=== PATIENT | female | born 1960 | race Caucasian/White ===

== ENCOUNTER 2018-07-15 15:32 | Outpatient (REF) | payer BC, SELFPAY ==
[2018-07-15 19:18] LABS: HCT 40.6 % (36.0-46.0); HGB 13.6 g/dL (12.0-15.5); Mean Corp. HGB Concentration 33.5 g/dL (32.0-36.0); Mean Corpuscular Hemoglobin 30.7 pg (27.0-33.0); Mean Corpuscular Volume 91.6 fL (80-95); Mean Platelet Volume 10.5 fL (8.0-11.0); Platelet Count 245 x1000/uL (130-400); RBC 4.43 m/cumm (4.00-5.20); RBC Distribution Width 12.9 % (11.7-14.6); White Blood Cell Count 4.68 k/cumm (4.4-10.8)
[2018-07-15 19:25] LABS: Anion Gap 9.6 mmol/L (3-11); BUN 21 mg/dL (7-18); C-Reactive Protein 0.23 mg/dL (0.0-0.3); CO2 27.4 mmol/L (21.0-32.0); CREATININE 0.84 mg/dL (0.55-1.02); Calcium 8.9 mg/dL (8.5-10.1); Chloride 103 mmol/L (98-107); Glucose 83 mg/dL (70-100); Potassium 3.6 mmol/L (3.5-5.1); Sodium 140 mmol/L (136-145)
[2018-07-15 19:52] LABS: ESR 18 MM/HR (0-30)
[2018-07-17 09:49] LABS: Cyclic Citrullinated Peptide <2.5 U/mL (<5.0)
[2018-07-17 10:39] LABS: Rheumatoid Factor <8 IU/mL (<12.5)
[2018-07-17 14:46] LABS: ANA Interpretation Negative (NEGAT)
== END 2018-07-15 15:52 ==
LOC: NCHCN 15:32
PROVIDERS: PCP Internal Medicine; Visit Provider Internal Medicine
DX: M19.90 Unspecified osteoarthritis, unspecified site (principal); M79.7 Fibromyalgia; R42 Dizziness and giddiness
CPT/HCPCS: 80048; 85027; 85652; 86200; 86038; 86140; 86431

== ENCOUNTER 2018-12-20 16:24 | Outpatient (REF) | payer BC, SELFPAY ==
[2018-12-20 20:27] LABS: ALT 27 U/L (14-59); AST 17 U/L (15-37); Albumin 3.6 g/dL (3.4-5.0); Alkaline Phosphatase 78 U/L (46-116); Bilirubin, Direct 0.09 mg/dL (0.00-0.20); Bilirubin, Total 0.2 mg/dL (0.2-1.0); Lipase 189 U/L (73-393); Total Protein 6.7 g/dL (6.4-8.2)
== END 2018-12-20 16:44 ==
LOC: NCHCN 16:24
PROVIDERS: PCP Internal Medicine; Visit Provider Internal Medicine
DX: R10.9 Unspecified abdominal pain (principal)
CPT/HCPCS: 80076; 83690

== ENCOUNTER 2020-09-20 16:31 | Outpatient (REF) | payer MEDICAID, SELFPAY ==
[2020-09-20 20:05] LABS: HCT 39.5 % (36.0-46.0); HGB 12.9 g/dL (11.2-15.7); MCH 29.8 pg (27.0-33.0); MCHC 32.7 % (32.0-36.0); MCV 91.2 fL (80-95); MPV 10.4 fL (8.0-11.0); Platelet Count 253 10^3/uL (130-400); RBC 4.33 10^6/uL (3.93-5.22); RDW 12.9 % (11.7-14.6); RDW-SD 43.3 fL; WBC 6.15 10^3/uL (4.4-10.8)
[2020-09-20 20:21] LABS: BUN 23 mg/dL (7-18); CREATININE 0.9 mg/dL (0.55-1.02); Calcium 8.9 mg/dL (8.5-10.1); Chloride 106 mmol/L (98-107); Glucose 92 mg/dL (74-106); Potassium 3.6 mmol/L (3.5-5.1); Sodium 143 mmol/L (136-145)
== END 2020-09-20 16:32 | disposition home or self-care (01) ==
LOC: NCHCN 16:31
PROVIDERS: PCP Internal Medicine; Visit Provider Internal Medicine
DX: I10 Essential (primary) hypertension (principal); R10.32 Left lower quadrant pain; J44.9 Chronic obstructive pulmonary disease, unspecified
CPT/HCPCS: 80048; 85027; 84443

== ENCOUNTER 2021-04-04 14:47 | Outpatient (REF) | payer MEDICAID, SELFPAY ==
[2021-04-04 20:16] LABS: Calculated LDL 203 mg/dL (<100); Cholesterol 286 mg/dL (<200); HDL Cholesterol 45 mg/dL (40-60); Triglyceride 190 mg/dL (<150)
== END 2021-04-04 14:48 | disposition home or self-care (01) ==
LOC: NCHCN 14:47
PROVIDERS: PCP Internal Medicine; Visit Provider Nurse Practitioner Family
DX: I25.10 Atherosclerotic heart disease of native coronary artery without angina pectoris (principal)
CPT/HCPCS: 80061

== ENCOUNTER 2021-04-14 16:09 | Outpatient (REF) | payer MEDICAID, SELFPAY ==
[2021-04-14 20:16] LABS: ALT 30 U/L (14-59); AST 19 U/L (15-37); Albumin 3.8 g/dL (3.4-5.0); Alkaline Phosphatase 87 U/L (46-116); Bilirubin, Direct 0.1 mg/dL (0.0-0.2); Bilirubin, Total 0.4 mg/dL (0.2-1.0); Total Protein 7.2 g/dL (6.4-8.2)
== END 2021-04-14 16:10 | disposition home or self-care (01) ==
LOC: NCHCN 16:09
PROVIDERS: PCP Internal Medicine; Visit Provider Nurse Practitioner Family
DX: E78.5 Hyperlipidemia, unspecified (principal)
CPT/HCPCS: 80076

== ENCOUNTER 2021-05-19 18:48 | Outpatient (REF) | payer MEDICAID, SELFPAY ==
[2021-05-19 21:44] LABS: ALT 26 U/L (14-59); Calculated LDL 71 mg/dL (<100); Cholesterol 148 mg/dL (<200); Glucose 103 mg/dL (74-106); HDL Cholesterol 38 mg/dL (40-60); Triglyceride 198 mg/dL (<150)
[2021-05-19 21:54] LABS: Creatine Kinase 134 U/L (26-192)
== END 2021-05-19 18:49 | disposition home or self-care (01) ==
LOC: NCHCN 18:48
PROVIDERS: PCP Internal Medicine; Visit Provider Internal Medicine
DX: E78.5 Hyperlipidemia, unspecified (principal)
CPT/HCPCS: 80061; 82550; 82947; 84460

== ENCOUNTER 2021-06-17 08:15 | Outpatient (CLI) | payer MEDICAID, SELFPAY ==
--- NOTE | 2021-06-17 08:15 | RT.EKG_ITS ---
APPROVED REPORT Exam: Resting ECG Reason for Exam: CAD Patient Location: O HR:60 bpm ECG Measurements Heart Rate 60 AXIS TX 173 P 61 QRSd 156 QRS 18 QT 490 T 58 QTc 490 Conclusion Sinus rhythm...normal P axis, V-rate 50- 99 Left bundle branch block...QRSd>120, broad/notched R
== END 2021-06-17 08:16 | disposition home or self-care (01) ==
LOC: DI.CARD 08:16
PROVIDERS: PCP Internal Medicine; Visit Provider Internal Medicine Cardiovascular Disease
DX: I25.10 Atherosclerotic heart disease of native coronary artery without angina pectoris (principal)
CPT/HCPCS: 93010

== ENCOUNTER → 2021-06-30 02:00 | Outpatient (CLI) | payer MEDICAID, SELFPAY ==
--- NOTE | 2021-06-30 08:00 | DI.NM_ITS ---
APPROVED REPORT Exam: Pharmacologic Patient Location: Out-Patient Room/Bed: Stress Nurse: Kaylee Garrett RN Ordering Provider:JANEL BENSON, Contact Number: [phone] BMI: 31.88 Baseline Rhythm: Sinus Rhythm, LBBB Indications: Chest pain Medical History Medical History: Hypertension, hyperlipidemia, COPD, obesity, hx tobacco use, LBBB, palpitations, CAD , osteoarthritis, fibromyalgia, gerd, graves disease Cardiac Medications: Atenolol, rosuvastatin, losartan-HCTZ, fluticasone-salmetrol inhaler Allergies: Fentanyl, gabapentin, penicillins, marlon inhibitors, dicloflenal Cardiac Risk Factors: Hypertension, hyperlipidemia, COPD, obesity, smoker (former), CVD, family hx Previous Cardiac Procedures: None Pretest Chest Pain Characteristics: Baseline 02/14 chest pain Exercise History: Sedentary Physical Disabilities: None Lung Sounds: Clear to auscultation Heart Sounds: Regular Stress Test Details Test: Pharmacologic stress was paired with low level exercise. Reason for pharmacologic stress test: LBBB. Nuclear Acquisition: Rest Tc-99m/Stress Tc-99m 1 day Rest Isotope: Tc-99m Sestamibi. Dose: 9.9 Date: 06/30/2021 Injection Time: 1105 Stress Isotope: Tc-99m Sestamibi. Dose: 29.8 Date: 06/30/2021 Injection Time: 1255 HR Resting HR Supine: 60 bpm Max Heart Rate (APMHR): 161.101695 bpm Resting HR Standin bpm Target HR (85% APMHR): 136.914902 bpm Max HR Achieved: 122 bpm % of APMHR: 75.78 Recovery HR: 80 bpm HR response to stress: Blunted HR response to stress Comment: Atenolol held for 48 hrs BP Resting BP Supine: 122/86 mmHg Resting BP Standin/84 mmHg Max BP: 134/74 mmHg Recovery BP: 124/70 mmHg ECG Resting ECG: Sinus Rhythm, LBBB Ectopy: None Stress ECG: Sinus Tachycardia, LBBB ST Change: Nondiagnostic LBBB Arrhythmia: None Recovery ECG: Sinus Rhythm, LBBB Recovery ST Change: Nondiagnostic LBBB Recovery Arrhythmia: None Clinical Stress Symptoms: General Fatigue, Dyspnea, Chest pain Exercise duration: 4 min00 sec Exercise capacity: 2.23 METs Rate Pressure Product: 45642 Stress ECG Conclusion 1. Resting electrocardiogram showed a left bundle branch block 2. The patient underwent testing with low-level exercise along with pharmacologic stress with regaden oson 3. Peak heart rate achieved was 74% of predicted for age 4. The electrocardiographic portion of the test was nondiagnostic due to left bundle branch block and inadequate heart rate 5. See MPI report Stress Test Summary STAGE HR BP Symptoms NOTES Supine 60 122/86 Baseline chest pain 1/10 SPO2 97% 1 min post Lexiscan injection 120 128/76 Mild SOB, chest pain 3/10 SPO2 97% 3 min post Lexiscan injection 105 134/74 Symptoms improving SPO2 96% 6 min post Lexiscan injection 80 124/70 SOB and chest pain resolved SPO2 97% MPI Conclusion Normal myocardial perfusion without evidence of ischemia or prior infarction EF 73%, normal wall motion Radiologist Interpretation Radiologist Interpretation by: Reji Escobar MD Interpretation Date/Time: 06/30/2021 16:57:56
[2021-06-30] MEDS: Regadenoson 0.4 MG/5 ML SYR IVP (13:25)
== END ==
PROVIDERS: PCP Internal Medicine; Visit Provider Internal Medicine Cardiovascular Disease
DX: R07.89 Other chest pain (principal)
CPT/HCPCS: 78452; 93017; J2785

== ENCOUNTER → 2021-07-18 02:04 | Outpatient (CLI) | payer MEDICAID, SELFPAY ==
--- NOTE | 2021-07-18 13:53 | DI.US_ITS ---
APPROVED REPORT EXAM: Comprehensive 2D, Doppler, and color-flow Echocardiogram Patient Location: Out-Patient Supervisor [employer] Vehicle: Yue Diaz RDCS (AE) Indications: Chest pain Other Information Study Quality: Adequate Conclusion Normal left ventricular wall thickness and chamber size. Estimated ejection fraction is 60%. Wall m otion is normal Normal right ventricular size and systolic function Both atria are normal in size There is no structural or hemodynamically significant valvular disease Estimated right ventricular systolic pressure is 28 mmHg Wall motion Left Ventricle The left ventricle is normal size. The left ventricular systolic function is normal. The left ventric ular ejection fraction is within the normal range. There is normal left ventricular wall thickness. T here is normal LV segmental wall motion. There is no ventricular septal defect visualized. LVEF is 60 %. Right Ventricle The right ventricle is normal size. The right ventricular systolic function is normal. The RVSP is 27 .8mmHg. Atria The left atrium size is normal. The right atrium size is normal. The interatrial septum is intact wit h no evidence for an atrial septal defect. Aortic Valve The aortic valve is normal in structure. Aortic valve is trileaflet. There is no aortic valvular sten osis. No aortic regurgitation is present. Mitral Valve The mitral valve is normal in structure. No evidence of mitral valve stenosis. Mild mitral regurgitat ion. Tricuspid Valve The tricuspid valve is normal in structure. There is no tricuspid valve stenosis. Mild tricuspid regu rgitation. Pulmonic Valve The pulmonary valve is normal in structure. There is no pulmonic valvular stenosis. Trace pulmonic re gurgitation. Great Vessels The aortic root is normal in size. The ascending aorta is normal in size. Aortic arch is normal in ca liber. IVC is normal in size and collapses >50% with inspiration. Pericardium There is no pericardial effusion. 2D Dimensions IVSD d PLAX 0.99 cm F: 0.6-1.0 LV Vol A2C d MOD 103.1 mL LVPW d PLAX 0.97 cm F: 0.6 - 1.0 LV Vol A4C d MOD 104.0 mL LVID d PLAX 4.99 cm F: 3.8 - 5.2 LA vol/ BSA A2C s A-L 31.3 mL/m2 LVDs 3.25 cm F: 2.2 - 3.5 LA vol/ BSA A4C s A-L 26.8 mL/m2 Ao Root d 2.63 cm F: 2.7 - 3.3 LA Vol/ BSA Biplane s A-L 29.5 mL/m2 RA Area A4C 19.41 cm2 LA Area A4C s MOD 18.21 cm2 RA Vol/ BSA A4C s A-L 32.2 mL/m2 LA Area A2C s MOD 19.34 cm2 Ao Asc Diam d 3.12 cm F: 2.3 - 3.1 LV EF A4C MOD 58.5 % LV EF Teichholz 63.5 % LV EF A2C MOD 60.9 % LVEF (Anne's) 61.06 % F: 54 - 74 LV EF Biplane MOD 61.1 % LV Volume 83.47 mL F: 46 - 106 SV 65.59 mL LV Volume Index 46.37 mL/m2 F: 29 - 61 SV Index 36.35 mL/m2 LV Vol Biplane MOD 107.4 mL FS 34.60 % M-Mode TAPSE 2.43 cm (M/F) >1.7 LV Diastology MV E' medial 0.080 (>0.07 m/s) E/A Ratio 1.0 LV E/e MED 10.05 (<14) MV E Vmax 0.80 (0.4-1.3 m/s) MV E' lateral 0.093 (>0.1 m/s) MV A Vmax 0.80 (0.4-1.3 m/s) LV E/e LAT 8.60 (<14) MV E/A Ratio 0.98 MV E/E' medial 10.06 MV E/E' lateral 8.65 Aortic Valve LVOT Area 3.01 cm2 AoV Area Vmax 2.72 cm2 LVOT Vmax 1.40 m/s AoV Area/ BSA (Vmax) 1.51 cm2/m2 LVOT Mean Antonio. 1.01 m/s ASPEN Mean Antonio. 2.64 cm2 LVOT Peak Grad 7.9 mmHg ASPEN Mean Antonio. Index 1.46 cm2/m2 LVOT Mean Grad 4.5 mmHg LVOT VTI 0.361 m LVOT Diam s 1.95 cm AoV Vmax 1.55 m/s Velocity Ratio 0.90 AoV Mean Antonio. 1.15 m/s AoV Peak Grad 9.6 mmHg LVOT SV 108.67 mL AoV Mean Grad 5.9 mmHg AoV VTI 0.383 m AoV Area VTI 2.84 cm2 AoV Area/ BSA (VTI) 1.57 cm/m2 Mitral Valve MV DT 197 (160-240 msec) MV PHT 57 msec MV Area PHT 3.86 cm2 MV VTI 0.375 m MV Area VTI 2.90 (4.0-6.0 cm2) Pulmonary Valve PV Vmax 0.89 (0.5-1.5 m/s) RVOT Peak Gr. 1.28 mmHg PV Peak Grad 3.2 mmHg RVOT Mean Gr. 0.85 mmHg PV Mean Grad 1.8 mmHg RVOT VTI 0.143 m PV VTI 0.210 m RVOT Vmax 0.57 m/s Tricuspid Valve TR Peak Grad 24.8 mmHg TR Vmax 2.49 m/s RA Pressure 3.00 mmHg RVSP (TR) 27.8 mmHg
== END ==
PROVIDERS: PCP Internal Medicine; Visit Provider Internal Medicine Cardiovascular Disease
DX: R07.9 Chest pain, unspecified (principal)
CPT/HCPCS: 93306

== ENCOUNTER 2022-02-23 02:32 | Outpatient (CLI) | payer MEDICAID, SELFPAY ==
--- NOTE | 2022-02-23 11:00 | DI.NM_ITS ---
APPROVED REPORT Exam: Exercise Treadmill Patient Location: Out-Patient Room/Bed: Stress Nurse: Ghada Armando RN Ordering Provider:DAVIAN SOLANO, Contact Number: [phone] BMI: 29.93 Baseline Rhythm: Sinus Rhythm, Sinus Bradycardia Indications: CAD, marked MEDEROS Medical History Medical History: CAD, COPD, Depression, Former Smoker, Fibromyalgia, GERD, HLD, HTN, LBBB, palpitatio ns Cardiac Medications: Rosuvastatin, losartan, atenolol Allergies: Fentanyl, gabapentin, penicillins, MARY inhibitors, diclofenac Cardiac Risk Factors: Family Hx, COPD, CVD, HTN, HLD, Former Smoker Previous Cardiac Procedures: Stress test (2021) Pretest Chest Pain Characteristics: none Exercise History: Sedentary Physical Disabilities: none Lung Sounds: Clear to auscultation Heart Sounds: Regular Stress Test Details Test: Exercise stress converted to pharmacologic stress due to failure to obtain a diagnostic stress test. Nuclear Acquisition: Stress Tc-99m/Stress Tc-99m 1 day Rest Isotope: Tc-99m Sestamibi. Dose: 10 Date: 02/23/2022 Injection Time: 1125 Stress Isotope: Tc-99m Sestamibi. Dose: 30 Date: 02/23/2022 Injection Time: 1306 HR Resting HR Supine: 53 bpm Max Heart Rate (APMHR): 160.635338 bpm Resting HR Standin bpm Target HR (85% APMHR): 136.117151 bpm Max HR Achieved: 108 bpm % of APMHR: 67.50 Recovery HR: 73 bpm HR response to stress: Normal HR response to stress BP Resting BP Supine: 128/80 mmHg Resting BP Standin/90 mmHg Max BP: 150/92 mmHg Recovery BP: 122/92 mmHg BP response to stress: Normal blood pressure response to stress. ECG Resting ECG: Sinus Bradycardia Ectopy: none Comment: baseline ST depression leads II, III, aVF, V5, and V6 1mm max deviation horizontal Stress ECG: Sinus Rhythm, Sinus Tachycardia ST Change: Horizontal ST depression Lead(s): II, II, aVF, V5, V6 Stage: [address] Deviation: 3 mm Arrhythmia: None Recovery ECG: Sinus Rhythm Recovery ST Change: Horizontal ST depression Lead(s): II, III, aVF, V5, V6 Recovery ST Deviation: 1 mm Recovery Arrhythmia: None Comment: baseline ST depression Clinical Reason for Termination: Fatigue Stress Symptoms: General Fatigue Exercise duration: 4 min01 sec Highest Stage Reached: Stage 1: 1.7 mph at 10% grade. Exercise capacity: 4.6 METs Functional Capacity: Markedly diminished capacity Functional Aerobic Impairment 29552% Angina Score: None Hercules Treadmill Score: -11.0 Rate Pressure Product: 80648 Stress ECG Conclusion 1. The resting electrocardiogram showed a left bundle branch block 2. Patient underwent testing using a combination of low-level exercise and pharmacologic stress with regadenoson 3. Peak heart rate achieved was 68% of predicted for age 4. The electrocardiographic portion of the test was nondiagnostic due to inadequate heart rate and le ft bundle branch block 5. See MPI report Hercules Treadmill Score is -11.0 which is High risk. Stress Test Summary STAGE Time (mins) Speed (mph) Grade (%) HR BP SpO2 SYMPTOMS METS Supine 53 128/80 95 Standing 69 130/90 95 1 3 1.7 10 unable to complete-transition at 1:45 4.5 1 min post Lexiscan injection 104 140/90 95 SOB, chest tightness 3 min post Lexiscan injection 101 150/92 95 SOB, chest tightness, severe anxiety 6 min post Lexiscan injection 81 132/88 95 SOB and chest tightness resolved 9 min post Lexiscan injection 73 122/92 96 anxiety still present Transition to walking lexiscan at 01:45 for fatigue. Walking jarod was performed at 0% grade and 0.7mp h. Patient had a reaction to lexiscan. She first experienced SOB and chest tightness. As those symptoms were resolving, she started experiencing severe anxiety accompained with a shaking feeling. This feel ing was resolved after sitting with staff for awhile and drinking coffee. At 1335, patient reports sh e is feeling back to normal. MPI Conclusion Normal myocardial perfusion, no ischemia or evidence of prior infarction EF 61%, normal wall motion Radiologist Interpretation Radiologist agrees with Paper Twister's Interpretation. Radiologist Interpretation by: Ahmet Nicole MD Interpretation Date/Time: 02/23/2022 16:41:44
[2022-02-23] MEDS: Regadenoson 0.4 MG/5 ML SYR IVP (13:21)
== END 2022-02-23 02:52 ==
LOC: DI 02:32
PROVIDERS: PCP Internal Medicine; Visit Provider Internal Medicine
DX: I25.10 Atherosclerotic heart disease of native coronary artery without angina pectoris (principal)
CPT/HCPCS: 78452; 93017; J2785

== ENCOUNTER 2022-06-05 10:07 | Outpatient (CLI) | payer MEDICAID, SELFPAY ==
--- NOTE | 2022-06-05 09:45 | DI.RAD_ITS ---
Exam(s) XR KNEE RT 3V AP,LAT,SIVAN EXAM: XR KNEE RT 3V AP,LAT,SIVAN CLINICAL HISTORY: R knee pain. TECHNIQUE: 2D digital imaging was performed of the right knee. Three views obtained. Merchant, AP, l ateral and PA tunnel views were obtained. COMPARISON: No exams were available for comparison FINDINGS: BONES: No acute fracture is present. No bony destructive lesion is seen. JOINTS: There is mild narrowing of the medial femoral tibial joint. No joint effusion is seen. SOFT TISSUE: Atherosclerosis is present. IMPRESSION: Mild joint space narrowing of the right knee. DATA REPOSITORY: RADIATION DOSE DELIVERED:
== END 2022-06-05 10:08 | disposition home or self-care (01) ==
LOC: DIORS 10:07
PROVIDERS: PCP Internal Medicine; Visit Provider Physician Assistant
DX: M17.11 Unilateral primary osteoarthritis, right knee
CPT/HCPCS: 73562

== ENCOUNTER 2022-10-12 04:30 | Outpatient (CLI) | payer MEDICAID, SELFPAY ==
[2022-10-12] MEDS: Albuterol HFA 18 GM 200 PUFF INH IH (14:43)
[2022-10-12] MEDS: Inhaler, Assist Device 1 EACH MC (14:43)
[2022-10-12] MEDS: Methacholine 100 MG VIAL IH (14:43)
--- NOTE | 2022-10-17 07:21 | W.PFT ---
Date of service: 10/12/22 Time of Service: 13:07 Pulmonary Function Test Result Indications: Chronic cough Interpretation Spirometry: There is mild baseline airflow limitation. There was a 20% decrease in FEV1 with administration of 0.5mg/mL methacholine. Impression Mild chronic airflow obstruction with a positive methacholine challenge. Clinical Correlation therefore is recommended.
== END 2022-10-12 04:31 | disposition home or self-care (01) ==
PROVIDERS: PCP Internal Medicine; Visit Provider Student in an Organized Health Care Education/Training Program
DX: R05.3 Chronic cough (principal)
CPT/HCPCS: 94060; 94070; J7674

== ENCOUNTER 2022-11-16 01:07 | Outpatient (CLI) | payer MEDICAID, SELFPAY ==
[2022-11-16 15:30] LABS: HGB 13.5 g/dL (11.2-15.7); MCH 29.5 pg (27.0-33.0); MCHC 32.9 % (32.0-36.0); MCV 90 fL (80-95); MPV 9.3 fL (8.0-11.0); Platelet Count 226 10^3/uL (130-400); RBC 4.58 10^6/uL (3.93-5.22); RDW 12.6 % (11.7-14.6); RDW-SD 41.4 fL; WBC 7.08 10^3/uL (4.4-10.8)
[2022-11-16 16:32] LABS: Anion Gap 6.8 mmol/L (3-11); BUN 24 mg/dL (7-18); CO2 30.2 mmol/L (21.0-32.0); CREATININE 1.1 mg/dL (0.55-1.02); Calcium 9.6 mg/dL (8.5-10.1); Chloride 104 mmol/L (98-107); Estimated GFR 57.17 (mL/min/1.73m2); Glucose 87 mg/dL (74-106); Potassium 3.4 mmol/L (3.5-5.1); Sodium 141 mmol/L (136-145)
== END 2022-11-16 01:08 | disposition home or self-care (01) ==
LOC: LBO 01:07
PROVIDERS: PCP Internal Medicine; Visit Provider Student in an Organized Health Care Education/Training Program
DX: M17.11 Unilateral primary osteoarthritis, right knee (principal); Z01.818 Encounter for other preprocedural examination
CPT/HCPCS: 36415; 80048; 85027

== ENCOUNTER 2022-11-16 15:25 | Outpatient (CLI) | payer MEDICAID, SELFPAY ==
--- NOTE | 2022-11-16 14:52 | DI.RAD_ITS ---
Exam(s) XR STANDING ALIGNMENT EXAM: XR STANDING ALIGNMENT CLINICAL HISTORY: R TKR planning. TECHNIQUE: 2D digital imaging was performed. Standing AP views were performed from the pelvis throu gh the ankles. COMPARISON: CR XR KNEE RT 3V AP,LAT,SIVAN from 06/05/2022 FINDINGS: BONES: No acute fracture is present. No bony destructive lesion is seen. Leg length discrepancy: JOINTS: Knees: Moderate narrowing of the medial femoral tibial joint space of the right knee with mil d periarticular spurring. Joint spaces of the left knee are maintained. The ankle joints are unremarkable. The hip joints are unremarkable. SOFT TISSUE: Normal. IMPRESSION: Moderate degenerative changes of the right knee.. No significant leg length discrepancy. DATA REPOSITORY: RADIATION DOSE DELIVERED:
== END 2022-11-16 15:26 | disposition home or self-care (01) ==
LOC: DIORS 15:26
PROVIDERS: PCP Internal Medicine; Visit Provider Physician Assistant
DX: M17.11 Unilateral primary osteoarthritis, right knee (principal); Z01.818 Encounter for other preprocedural examination
CPT/HCPCS: 77073

== ENCOUNTER 2022-11-21 08:21 | Day surgery (SDC) | payer MEDICAID, SELFPAY ==
[2022-11-21] VITALS (13 sets, daily range): BP systolic 97–162; BP diastolic 47–85; PULSE 51–646; RESP 13–18; TEMP 36.3–36.5; O2SAT 78–99; BMI 31.5
--- NOTE | 2022-11-21 09:10 | W.ANESPRE ---
General Info Date of Service Date Performed: 11/21/22 Height: 5 ft 3 in Weight: 80.739 kg Body Mass Index (BMI): 31.5 Surgical Procedure: Operation Date: 11/21/22 11:25 Proposed Procedure Side Surgeon p Knee Total Arthroplasty, Cementless CR Right Richard Chavarria MD Meds Allergies and Home Medications Allergies Allergy/AdvReac Type Severity Reaction Status Date / Time gabapentin Allergy Rash over Verified 11/21/22 09:01 entire body Penicillins AdvReac Severe Anaphylaxsi Verified 11/21/22 09:01 s MARY Inhibitors AdvReac cough Verified 11/21/22 09:01 diclofenac [From Voltaren] AdvReac unknown Verified 11/21/22 09:01 fentanyl [From Duragesic] AdvReac Vomiting, Verified 11/21/22 09:01 and heart racing Home Medication Medication Instructions Recorded atenolol 25 mg tablet 25 mg PO HS 08/07/22 cholecalciferol (vitamin D3) 25 25 mcg PO DAILY 08/07/22 mcg (1,000 unit) tablet fluocinonide 0.05 % topical cream 1 applic topical DAILY PRN 08/07/22 losartan 100 1 tab PO DAILY 08/07/22 mg-hydrochlorothiazide 25 mg tablet rosuvastatin 20 mg tablet 20 mg PO HS 08/07/22 budesonide-formoterol HFA 80 2 puff inhalation BID #10.2 grams 10/05/22 mcg-4.5 mcg/actuation aerosol inhaler (Symbicort) sodium chloride 0.65 % nasal spray 2 spray intranasal BID dry nasal 10/05/22 aerosol (Saline Mist) passages #45 mL triamcinolone acetonide 55 mcg 1 spray intranasal DAILY #16.9 mL 10/05/22 nasal spray aerosol (Nasacort) ibuprofen 200 mg tablet (IBU-200) 400 mg PO TID PRN 11/21/22 Current Visit Medications: Current Medications Generic Name Dose Route Start Last Admin Trade Name Freq PRN Reason Stop Dose Admin Acetaminophen 1,000 mg 11/21/22 06:00 Acetaminophen 500 Mg Tab PO 11/21/22 16:00 PREOP JERRY Celecoxib 400 mg 11/21/22 06:00 Celecoxib 200 Mg Cap PO 11/21/22 16:00 PREOP JERRY Tranexamic Acid 1,000 mg/ 60 mls @ 360 mls/hr 11/21/22 06:00 Sodium Chloride IVPB 11/21/22 16:00 PREOP JERRY Ringer's Solution 1,000 mls @ 80 mls/hr 11/21/22 06:00 IV 12/20/22 23:59 INFUSION JERRY Clindamycin Phosphate/Dextrose 900 mg in 50 mls @ 50 mls/hr 11/21/22 06:00 Cleocin In D5w IVPB 11/21/22 16:00 PREOP JERRY IV Miscellaneous Supplies 1 each 11/21/22 06:00 Iv Access IV 12/20/22 23:59 DIRECTED JERRY Sodium Chloride 0 ml 11/21/22 06:00 Normal Saline Flush 10 Ml Syr IV 12/20/22 23:59 PRN PRN Sodium Chloride 0 ml 11/21/22 06:00 Normal Saline 10 Ml Vial IJ 12/20/22 23:59 DIRECTED PRN Sterile Water 0 ml 11/21/22 06:00 Water,Injection,Sterile 10 Ml Vial IJ 12/20/22 23:59 DIRECTED PRN PFSH Active Problems Active Problems: Problem Status Onset Code Sciatica M54.30 COVID-19 virus infection U07.1 Tendinitis M77.9 Chronic cough R05.3 Osteoarthritis of right knee M17.11 Dyspnea on exertion R06.00 Chest pain R07.9 Shingles (herpes zoster) polyneuropathy B02.23 Medical History Medical History (Updated 11/20/22 @ 12:04 by Davie Leija) Asthma Visual disturbance (01/01/17) Postnasal drip (01/01/17) Disorder of both eustachian tubes (01/01/17) Chronic rhinitis (01/01/17) Chronic disease of both ears (01/01/17) 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 managed Psoriasis Ex-smoker for more than 1 year GERD (gastroesophageal reflux disease) Bilateral carpal tunnel syndrome Menopausal and postmenopausal disorder LBBB (left bundle branch block) Thoracic radiculitis Allergic rhinitis Photophobia Chronic suppurative otitis media HTN (hypertension) Candidal intertrigo Abnormal brain MRI Chronic vertigo Fibromyalgia Herpes zoster Post herpetic neuralgia Mild cognitive impairment IBS (irritable bowel syndrome) Ear fullness COPD (chronic obstructive pulmonary disease) Osteoarthritis Depression Ankylosing spondylitis lumbar region Superior semicircular canal dehiscence LLQ pain Rib pain on left side Neuralgia of right upper extremity Abnormal breast finding CAD (coronary artery disease) HLD (hyperlipidemia) Surgical History Surgical History (Updated 11/21/22 @ 08:44 by Shruthi Hernandez) Hx of tonsillectomy History of nasal septoplasty History of cholecystectomy Tobacco Smoking/Tobacco Use Status: Former Tobacco Use Alcohol Alcohol Intake: never Substance Use Substance use: Daily Substance use type: marijuana Vital Signs and Lab Results Vital Signs Comment Vital Signs Comment:: Temp Pulse Resp BP Pulse Ox 36.5 C 58 L 16 127/68 98 11/21/22 08:30 11/21/22 08:30 11/21/22 08:30 11/21/22 08:30 11/21/22 08:30 Lab Results Blood Type / Crossmatch: No Data to Display Complete Blood Count: White Blood Count 7.08 10^3/uL (4.4-10.8) 11/16/22 15:20 Red Blood Count 4.58 10^6/uL (3.93-5.22) 11/16/22 15:20 Hemoglobin 13.5 g/dL (11.2-15.7) 11/16/22 15:20 Hematocrit 41.0 % (36.0-46.0) 11/16/22 15:20 Platelet Count 226 10^3/uL (130-400) 11/16/22 15:20 Complete Metabolic Panel: Sodium 141 mmol/L (136-145) 11/16/22 15:20 Potassium 3.4 mmol/L (3.5-5.1) L 11/16/22 15:20 Chloride 104 mmol/L (98-107) 11/16/22 15:20 Carbon Dioxide 30.2 mmol/L (21.0-32.0) 11/16/22 15:20 BUN 24 mg/dL (7-18) H 11/16/22 15:20 Creatinine 1.1 mg/dL (0.55-1.02) H 11/16/22 15:20 Est GFR (CKD-EPI 2020) 57.17 (mL/min/1.73m2) 11/16/22 15:20 Calcium 9.6 mg/dL (8.5-10.1) 11/16/22 15:20 Glucose 87 mg/dL (74-106) 11/16/22 15:20 Liver Function Panel: No Data to Display Coagulation Panel: No Data to Display Cardiac Panel: No Data to Display Arterial Blood Gas: No Data to Display Venous Blood Gas: No Data to Display Pancreas Panel: No Data to Display Thyroid Panel: No Data to Display Infectious Disease: No Data to Display Blood Cultures: No Data to Display Toxicology Panel: No Data to Display Imaging and Studies Imaging and Studies Study information below may be from another EMR and interpreted by another provider. Please see original notes in EMR for more complete details. EKG Summary: 06/17/2021: Exam: Resting ECG Reason for Exam: CAD Patient Location: O HR:60 bpm ECG Measurements Heart Rate 60 AXIS LA 173 P 61 QRSd 156 QRS 18 QT 490 T58 QTc 490 Conclusion Sinus rhythm...normal P axis, V-rate 50- 99 Left bundle branch block...QRSd>120, broad/notched R Echocardiogram Summary: 07/18/2021: Conclusion Normal left ventricular wall thickness and chamber size. Estimated ejection fraction is 60%. Wall motion is normal Normal right ventricular size and systolic function Both atria are normal in size There is no structural or hemodynamically significant valvular disease Estimated right ventricular systolic pressure is 28 mmHg Pulmonary Function Summary: 10/17/22: Pulmonary Function Test Result Indications: Chronic cough Interpretation Spirometry: There is mild baseline airflow limitation. There was a 20% decrease in FEV1 with administration of 0.5mg/mL methacholine. Impression Mild chronic airflow obstruction with a positive methacholine challenge. Clinical Correlation therefore is recommended. Anesthesia Assessment and Plan Anesthesia History Personal History: No History of Anesthesia Complications Family History: No Family History of Anesthesia Complications Exercise Tolerance Exercise Tolerance: Metabolic Equivalents>4 Pertinent Negatives Pertinent Negatives: No Symptoms of GERD and No Major Pulmonary Symptoms or Complaints Cardiac & Pulmonary Exam Cardiac Exam: Normal S1/S2 Heart Sounds Pulmonary Exam: Clear Bilateral Breath Sounds Implantable Cardiac Device Does patient have a Pacemaker or an ICD?: No Airway Exam Known Difficult Airway: No Mallampati Class: 3 Mouth Opening: Normal (> 3cm) Thyromental Distance: Greater than 3 cm Neck Range of Motion: Full ROM Neck Circumference: Normal Teeth Condition: Normal Dentition ASA Classification ASA Score: ASA 3 Emergency Case?: No NPO Status NPO Status: NPO Clears >2 hours, Solids >8 hours Anesthesia Plan Resuscitation Status: Full Code Anesthesia Technique: Spinal Anesthesia Airway Planned: Natural Airway Pain Management: Surgeon and patient request nerve block Monitors Used: Standard Monitors Preoperative Comments:: Patient extremely anxious, plan for preoperative sedation for block and SAB. If patient unable to tolerate block or SAB placement, plan to convert to GA/ETT.
[2022-11-21] MEDS: Acetaminophen 500 MG TAB 1000 MG PO (09:22)
[2022-11-21] MEDS: Celecoxib 200 MG CAP 400 MG PO (09:22)
[2022-11-21] MEDS: CLINDAMYCIN 900 MG/50 ML BAG 50 MG IVPB (09:40)
[2022-11-21] MEDS: Lactated Ringers 1,000 ML 80 ML IV (09:43)
--- NOTE | 2022-11-21 10:08 | W.PM.DS.N ---
Date of service: 11/21/22 Time of Service: 10:14 DS: Diagnosis Discharge Diagnosis (1) Osteoarthritis of right knee: Status: Resolved Discharge Plan Disposition Patient Disposition: Home Condition: Good Discharge Details Reason For Visit: Right knee DJD Attending Provider: Richard Chavarria Primary Care Provider: Reji Campbell Home Meds and New Rx's Prescriptions: New acetaminophen 500 mg tablet 1,000 mg PO Q8H PRN Qty: 90 0RF Rx Instructions: Take two tablets up to every 8 hours as needed for pain aspirin 81 mg tablet,delayed release (DR/EC) 81 mg PO BID 30 Days Qty: 60 0RF celecoxib [Celebrex] 200 mg capsule 200 mg PO BID PRNQty: 60 0RF Rx Instructions: Take one tablet twice daily for pain and inflammation docusate sodium [Colace] 100 mg capsule 100 mg PO BID Qty: 30 0RF dexamethasone 4 mg tablet 4 mg PO DAILY Qty: 2 0RF Rx Instructions: Take one tablet once daily for two days pantoprazole 40 mg tablet,delayed release (DR/EC) 40 mg PO DAILY Qty: 14 0RF ondansetron HCl 4 mg tablet 4 mg PO Q6H PRNQty: 12 0RF Rx Instructions: Take one tablet up to every 6 hours as needed for severe postoperative nausea Continued budesonide-formoterol [Symbicort] 80-4.5 mcg/actuation HFA aerosol inhaler 2 puff inhalation BID Qty: 10.2 12RF Saline Mist 0.65 % aerosol,spray 2 spray intranasal BID Qty: 45 4RF triamcinolone acetonide [Nasacort] 55 mcg aerosol,spray 1 spray intranasal DAILY Qty: 16.9 12RF Rx Instructions: administer into each nostril losartan-hydrochlorothiazide 100-25 mg tablet 1 tab PO DAILY rosuvastatin 20 mg tablet 20 mg PO HS atenolol 25 mg tablet 25 mg PO HS fluocinonide 0.05 % cream 1 applic topical DAILY PRN cholecalciferol (vitamin D3) 25 mcg (1,000 unit) tablet 25 mcg PO DAILY Discontinued ibuprofen [IBU-200] 200 mg tablet 400 mg PO TID PRN No Action oxycodone 5 mg tablet 5 mg PO Q6H PRN MDD 20 mg PRN (Reason: pain) Qty: 16 0RF Rx Instructions: Take one tablet up to every 6 hours as needed for severe postoperative pain Discharge Instructions Additional Instructions: Total Knee Discharge Instructions Activity: The most important activity is to walk and to work on gentle motion (both flexion and extension). You should try to take short walks a few times a day. It is important that when resting you work on keeping the knee straight. Avoid putting a pillow behind the knee as this will encourage flexion. Work on range of motion exercises as provided by Physical Therapy. - Start outpatient physical therapy within 2 weeks. - You should wear the ESTRELLA hose on both legs for 2 weeks. You may remove these at night. You may also use any compression sock in place of the ESTRELLA hose. - Utilize [employer] to review exercises, see videos on exercises and obtain basic information pertaining to your surgery and your recovery. Dressing: Remove the Fernando wrap by 2 days after your surgery and put on the ESTRELLA stocking given to you from the hospital. Keep the surgical dressing (underneath the FERNANDO wrap) in place for at least one week. After the first week it may be removed and replaced with light gauze and tape or nothing. The wound and dressing may get wet after 3 days but avoid soaking the dressing or otherwise it will need to be changed. Many people prefer covering the dressing with cling wrap (saran wrap) to minimize it from getting soaked. If it gets wet, just pat dry. If it starts to peel off then it will need to be changed. Medications: - You should take Tylenol and anti-inflammatory Celebrex as your primary pain control medications. If the Celebrex is too expensive or not covered, please call the office for another alternative (Advil/Ibuprofen or Naproxen/Aleve) - You have been prescribed a stronger pain medication Oxycodone for breakthrough pain, take as needed as prescribed. - You have also been prescribed a stomach acid reduction agent Pantoprozole to help reduce stomach acid and reflux. - You have been prescribed Ondansetron to help with postoperative nausea and vomiting. - You will be taking Aspirin 81mg twice a day for DVT prevention unless instructed otherwise. - You have also been prescribed Decadron to take to control post-operative nausea and pain. You will start this tomorrow. - If you have constipation you should take Colace (which has been prescribed) or Miralax (which is available [id number]). It takes most people 3-4 days to have a bowel movement. Follow-up: 2 weeks If you have any acute concerns or questions, please do not hesitate to contact the office at [phone]. You may contact Dr. Chavarria with any questions after hours through the hospital at [phone] or on his cell phone at [phone]. Stand Alone Forms: Anesthesia Discharge Inst., Luzs.Nerve Block Instructions, Jahaira Lam ([facility]) Referrals: Richard Chavarria MD [ [facility] STAFF PHYSICIAN] - 12/04/22 1:15 pm Equipment/Supplies: Walker Activity:: Elevate Remove Dressings/Wound Care:: Do Not Remove Shower/Bathe:: Cover Diet:: As Tolerated Discharge Orders Discharge Orders: Discharge Order (Routine); Ordered 11/21/22 Ordered By: Kristen Laguerre Discharge Data Discharge Date/Time-TO BE ENTERED AT DEPARTURE: 11/21/22 19:10 DS: Summary Time Spent with Patient providing and/or coordinating discharge services: Less than 30 minutes Status at Discharge Functional status at discharge: uses cane/walker Overall status at discharge: patient is progressing back to baseline Mental Status: mental status grossly normal Speech and Movement: speech and movement normal Mood: congruent mood Affect: normal affect Exam Psych Mental Status: mental status grossly normal Speech and Movement: speech and movement normal Mood: congruent mood Affect: normal affect DS: Data Vitals/I&O Vitals and I&O: Vital Signs Temperature 97.7 F 11/21/22 08:30 Pulse 58 L 11/21/22 08:30 Pulse Rhythm Regular 11/21/22 08:30 Respiratory Rate 16 11/21/22 08:30 Respiratory Depth Normal 11/21/22 08:30 Blood Pressure 127/68 11/21/22 08:30 Pulse Oximetry 98 11/21/22 08:30 Oxygen Delivery Method Room Air 11/21/22 08:30 Oxygen Flow Rate 0 11/21/22 08:30 Pain Level 2 11/21/22 08:30 Intake & Output 11/20/22 11/20/22 11/21/22 11:59 23:59 11:59 Weight 177 lb 15.984 oz 177 lb 15.984 oz PFSH All Active Problems (Updated 11/22/22 @ 08:15 by Sarah Beth Escobar RN) History of total right knee replacement (Acute 11/21/22) Sciatica (Acute) COVID-19 virus infection (Acute) Tendinitis (Acute) Chronic cough (Acute) Dyspnea on exertion (Acute) Chest pain (Acute) Shingles (herpes zoster) polyneuropathy (Acute) Medical History (Updated 11/22/22 @ 08:15 by Sarah Beth Escobar RN) Asthma Visual disturbance (01/01/17) Postnasal drip (01/01/17) Disorder of both eustachian tubes (01/01/17) Chronic rhinitis (01/01/17) Chronic disease of both ears (01/01/17) 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 managed Psoriasis Ex-smoker for more than 1 year GERD (gastroesophageal reflux disease) Bilateral carpal tunnel syndrome Menopausal and postmenopausal disorder LBBB (left bundle branch block) Thoracic radiculitis Allergic rhinitis Photophobia Chronic suppurative otitis media HTN (hypertension) Candidal intertrigo Abnormal brain MRI Chronic vertigo Fibromyalgia Herpes zoster Post herpetic neuralgia Mild cognitive impairment IBS (irritable bowel syndrome) Ear fullness COPD (chronic obstructive pulmonary disease) Osteoarthritis Depression Ankylosing spondylitis lumbar region Superior semicircular canal dehiscence LLQ pain Rib pain on left side Neuralgia of right upper extremity Abnormal breast finding CAD (coronary artery disease) HLD (hyperlipidemia) Surgical History (Updated 11/22/22 @ 08:15 by Sarah Beth Escobar RN) Hx of tonsillectomy History of nasal septoplasty History of cholecystectomy Family History Father Heart disease at 59 of [place] Social History (Updated 08/07/22 @ 10:29 by Ciara Waters) Smoking/Tobacco Use Status: Former Tobacco Use tobacco type: cigarettes Quit Date: 02/05/07 Smoking risk assessment performed?: Yes Alcohol Intake: never Drug use: Daily Substance use type: marijuana Housing: house What type of physical activity do you participate in: none Do you feel safe at home: Yes Do you feel safe in your relationship?: Yes Time Spent with Patient Time Spent with Patient: <45 minutes Time was spent: counseling the patient and care coordination
--- NOTE | 2022-11-21 11:04 | W.ANESNERVE ---
Nerve Block Single Injection Procedure Date and Time Date Performed: 11/21/22 Procedure Start: 10:15 Location Where Procedure Performed Procedure Location: Day Surgery Unit Reason Performed: Postoperative Analgesia Requesting Provider: Richard Chavarria Timeout Performed Timeout Performed: Yes Monitoring Used ECG, Blood Pressure, SpO2 and See EMR for corresponding vital signs Sterility Sterility: Hand Hygiene, Surgical Cap, Surgical Mask, Sterile Gloves and Chlorhexidine Sedation Given During Procedure Sedation Given (Indicate Dose Given): Versed IV Dose:: 2mg and Precedex IV Dose:: 20mcg Patient Mental Status Patient Mental Status: Sedate with meaningful communication Nerve Block 1st Nerve Block: Laterality: Right Block Type: Adductor Canal Ultrasound Image Saved?: Yes Needle / Catheter Used: 100mm SonoPlex II Local Anesthetic Bolus (Indicate Dose Given): Lidocaine used for local infiltration of skin, Injected in 3-5ml increments after negative blood aspiration and Bupivacaine 0.25% Dose:: 10mL Additives (Indicate Dose Given): None Ultrasound: Sterile probe cover and gel used Nerve Stimulator: Supplement to Ultrasound use and No twitch or parasthesia noted < 0.5 mA Paresthesia: None Procedure Tolerated: No Complications Procedure Outcome: Successful Procedure Comment: Patient tolerated procedure well after sedation administered, no complications. Performed By: Estrella Freeman
[2022-11-21] MEDS: LORazepam 2 MG/ML VIAL 0.5 MG IVP (13:13)
--- NOTE | 2022-11-21 13:14 | W.PM.OP ---
Date of service: 11/21/22 Time of Service: 10:30 Operative Note Operative Note DATE OF PROCEDURE: 11/21/22 PRE-OP DIAGNOSIS: Right Knee Osteoarthritis POST-OP DIAGNOSIS: same PROCEDURE: Right Total Knee Replacement SURGEON: Richard Chavarria REVENUE SETTLEMENTS ADMINISTRATOR: Kristen Laguerre ANESTHESIA TYPE: Spinal Refer to Anesthesia Record ESTIMATED BLOOD LOSS: 100 PATHOLOGY: none sent TOURNIQUET TIME: 0 COMPLICATIONS: None Patient was transported to: PACU Patient's condition: stable Implants: 1. Depuy Attune Cementless Cruciate Retaining Femoral Component, Size 5 2. Depuy Attune Cementless Fixed Bearing Tibial Component, Size 4 3. Depuy Attune 5x7 CR/FB Poly 4. Depuy Attune Patellar Component, Size 35 Indications: I have seen Sandra in clinic for symptoms of knee arthritis, confirmed with radiographic findings. She has exhausted nonoperative methods and was having significant limitations in daily function and desired better function and less pain. I discussed the technical details of a knee replacement. I explained the risks of the procedure to include, but not limited to, bleeding, infection, pain, stiffness, fracture, damage to nerves and vessels, damage to muscles and tendons, loosening, need for repeat procedure, blood clot and cardiopulmonary demise. Despite these risks, Sandra elected to proceed. Findings: There was significant signs of arthritis throughout the knee involving the medial compartment and the patella. Procedure Description: Therese was greeted in the preoperative holding area where the correct side was identified and marked. The consent was reviewed with the patient and signed. The history and physical was updated. All questions were answered. Preoperative medications were administered: Acetaminophen 1000mg, Celebrex 400mg, and Gabapentin 300mg. An adductor canal block was then administered by the anesthesia team in the PACU. Sandra was taken back to the operating room. A spinal anesthestic was then administered. The patient was placed into the supine position on the operating room table. A nonsterile tourniquet was placed high onto the leg but only used for cementing. Posts were placed for positioning during the procedure. All bony prominences were well padded. Prophylactic antibiotics in the form of Clindamycin were administered. 1g of Tranxemic Acid was given intravenously within 30 minutes of incision. The right leg was then prepped with Chloraprep and draped in a standard fashion with impervious stockinette. A second prep with Chloraprep was performed prior to application of Iodine impregnated skin protection. A timeout to confirm correct identity, side and site, procedure, allergies, anesthesia, and medical concerns was performed. With the knee in some flexion, a midline incision was made overlying the knee. Full thickness skin flaps were raised once the extensor mechanism was encountered. These were raised medially and laterally. Any bleeding was controlled with electrocautery. Once the extensor mechanism was fully exposed, a medial parapatellar arthrotomy was performed in a flexed position. All bleeding from the arthrotomy and the geniculate arteries was coagulated. A medial subperiosteal peel was performed with electrocautery to the midcoronal plane. The fat pad was removed while keeping the patellar tendon protected. The anterior distal femur synovium was removed for later visualization. The ACL and PCL were resected and the anterior horn of the lateral meniscus was transected. The knee was then flexed with the patella everted. Using a step drill, and based on preoperative templating, the femoral canal was entered. This was done with a step drill without any difficulty. The intramedullary distal femoral cut guide was inserted, set to a 5 degree valgus cut and 9mm cut thickness. The distal femoral cut guide was then held in position and pinned. With the soft tissues protected, the distal cut was performed. This was passed over a few times to ensure a planar cut. I then turned attention to the tibia. The extramedullary guide was placed onto the leg. The distal aspect was slid medial to adjust for position of center of ankle and stay in line with shaft of the tibia. Approximately 3-5 degrees of posterior slope was kept in the proximal cutting guide. The center of the guide was aligned with the PCL. The stylus was used to assess cut thickness. The medial side, most involved side, was set for a 5mm cut, which corresponded to 9mm laterally. This was then held in position and pinned into place with 2 additional pins and a cross pin for stability. The medial and lateral collateral ligaments were protected and the cut was performed. With this completed, it was assessed and noted to be of appropriate dimensions. The guide was removed. A spacer block was inserted and the knee was brought into extension. The 7mm spacer block provided full extension, without hyperextension and with stability of both the medial and lateral collateral ligaments was assessed. The pins from the femur and the tibia were then removed. The distal femur was then sized. The anterior stylus was placed onto the lateral ridge of the anterior femur. This indicated a size 5 femur. The external rotation of the guide was adjusted to 3 degrees to match the epicondylar axis, perpendicular to Sangamon?s line. The 4-in-1 cutting guide was the placed. The posterior medial femur cut was evaluated and appeared of good thickness. The spacer block was inserted underneath the cutting guide and stability was confirmed in 90 degrees of flexion. An kermit wing was used to confirm appropriate position of the anterior cut to avoid notching. This cutting guide was ensured to be flush on the cut surface and then pinned into place with headed pins. While protecting the soft tissues, quad tendon, and collateral ligaments, the anterior and posterior cuts were performed with a saw. The central two pins were removed and the posterior and anterior chamfers were cut next. The notch-cutting guide was placed. This was pinned to lateralize the femoral component as much as possible while keeping it flush on the cut surface. This was then pinned into position. A reciprocating saw was used to make the notch cut. A rasp smoothed the cut surfaces. The medial and lateral menisci were removed. A trial femoral component was then inserted, impacted down to the cut surfaces, and the lug holes were drilled. A provisional trial tibial component was placed and the knee was brought through range of motion. There was noted to be excellent extension and flexion. There was no significant instability. The patella was tracking without thumbs. A size 7mm polyethylene component provided the best range of motion and stability with less than 2mm gapping with medial and lateral stress and full extension without significant hyperextension. The tibial cut surface was fully exposed. The tibia was then sized as a 4. The tibia had been previously marked during trialing to correspond to the center of the tibial component to help with rotation. The trial was aligned to this renetta, approximately rotated to the medial 1/3rd of the tibial tubercle. The trial was pinned into place. The tibia was prepared with a reamer and a keel punch and lug holes. The knee was then brought into extension and the patella was measured as 24mm. Using the patellar clamp and cut guide, this was resected to a flat surface with at least 13mm of thickness remaining. The size 35 patella fit the best. This was oriented and then clamped into position. The lugs were drilled. The trial components were removed. The final components were opened on the back table. The periosteal and capsular tissues, especially posteriorly, around the knee were then systematically injected with a periarticular cocktail consisting of 246mg of Ropivacaine, 0.5mg of Epinephrine, 0.08mg of Clonidine, and 30mg of Ketorolac, diluted to 100cc. On the back table, with the implants opened, the cement was mixed. One batch of high viscosity cement was prepared with vacuum assistance. After the cement was ready a small amount was placed on the cut surface of the patella and the patellar button was clamped into position and held. While the cement was hardening, the cementless knee components were placed. Starting with the tibial component, the tibia was subluxed anteriorly and the lug holes of the component were lined up. The tibia was then impacted with an impactor and mallet until the tibial component was in contact with the tibia. The final polyethylene component was inserted. Then, the femoral component was inserted. The lug holes were aligned and the component was impacted into position. The knee was irrigated with Surgiphor Betadine solution. This was allowed to sit in the knee for 3 minutes and then it was irrigated out with saline. After the cement had finally cured, approximately 15min, the clamp was removed from the patella and the knee was taken through range of motion. The patella was tracking with a no-thumbs technique. The capsule was then reapproximated with a No. 1 Vicryl at multiple locations. The capsule was finally closed with a No. 2 Stratafix, barbed suture. Deep tissues were then reapproximated with 0 Vicryl and 2-0 Vicryl. The skin was closed with a running 3-0 Monocryl in a subcuticular fashion. This was reinforced with skin glue. A Mepilex silver dressing was applied along with a [id number] AMRY wrap. A CryoCuff was applied. Sandra was transferred to the hospital bed without difficulty an suffering no apparent complication. Sandra has a good prognosis. Physical therapy will start today and without restrictions, weight-bearing as tolerated. Aspirin 81mg BID will be used for DVT prophylaxis.
[2022-11-21] MEDS: oxyCODONE 5 MG TAB PO (14:20)
--- NOTE | 2022-11-21 14:29 | W.ANESPOSTOP ---
Postoperative Evaluation Date, Time and Location Date Performed: 11/21/22 Time Performed: 14:22 Patient Location: Day Surgery Unit Vital Signs Most Recent Imported Vital Signs: Most Recent Vital Signs Temp Pulse Resp BP Pulse Ox 36.5 C 66 17 130/76 99 11/21/22 13:45 11/21/22 13:45 11/21/22 13:45 11/21/22 13:45 11/21/22 13:45 Pain Score Most Recent Pain Score: Most Recent Pain Score Pain Level 0 11/21/22 13:15 Assessment Mental Status: Awake (Alert & Oriented to Patient Baseline) Airway and Respiratory Function: Patent airway with normal (patient baseline) respiratory exam Cardiovascular Function: Hemodynamically Stable Hydration Status: Adequately Hydrated Nausea & Vomiting: No Nausea or Vomiting Pain: Pt. Denies Any Pain Peripheral Nerve Block: Regional nerve block not resolved at time of post operative discharge
--- NOTE | 2022-11-21 15:19 | IN_ITS ---
PT Notes Visit Reasons: Right knee DJD Physical Therapy Day Surgery Initial Evaluation Date: 11/21/2022 Referring Doctor: MAXWELL Trujillo PT Orders: PT CONSULT: S/P Ortho Surgery Precautions: WBAT on the R LE with AD. Patient Profile/Admitting Diagnosis: Sandra is a 62-year-old female with degenerative joint disease of R knee and is S/P of R total knee arthroplasty on postoperative day 0. 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 (01/01/17) Chronic disease of both ears (01/01/17) Chronic rhinitis (01/01/17) Chronic suppurative otitis media Chronic vertigo Claustrophobia COPD (chronic obstructive pulmonary disease) Depression Disorder of both eustachian tubes (01/01/17) Ear fullness Ex-smoker for more than 1 year Family history of diabetes mellitus Fibromyalgia GERD (gastroesophageal reflux disease) Graves disease Herpes zoster HLD (hyperlipidemia) HTN (hypertension) IBS (irritable bowel syndrome) LBBB (left bundle branch block) LLQ pain Menopausal and postmenopausal disorder Mild cognitive impairment Neuralgia of right upper extremity Osteoarthritis Palpitations Photophobia Post herpetic neuralgia Postnasal drip (01/01/17) Psoriasis Rib pain on left side Superior semicircular canal dehiscence Thoracic radiculitis Visual disturbance (01/01/17) Social History/Home Situation: Lives with in a private home with 3 steps to enter without rails. Son lives close by and is readily available if needed. Equipment Owned/DME: None Subjective: Patient reports right ankle feeling awkward and swollen. Reports 3/10 pain in the right knee at rest and with movement. Complains of mild wooziness during mobility performance. Appeared mildly anxious about moving but was willing to try get out of bed. Nurse Shruthi cosme. Objective: General Observation: Supine in bed. MARY wraps to right LE. Cryocuff to right knee. TEDS on left leg. Mental Status: Alert and oriented x4 Pain: As above ROM: Right Lower Extremity: Hip flexion WFL. Hip abduction WFL. Knee flexion 30 degrees to 90 degrees. Knee extension -30 degrees. Ankle dorsiflexion WFL. Ankle plantarflexion WFL. Left Lower Extremity: Hip flexion WFL. Hip abduction WFL. Knee flexion WFL. Ankle dorsiflexion WFL. Ankle plantarflexion WFL. Strength: Right Lower Extremity: Hip flexors 4/5. Hip abductors 4/5. Knee flexors 3-/5. Knee extensors 3-/5. Ankle dorsiflexors 4/5. Ankle plantarflexors 4/5. Left Lower Extremity:Hip flexors 5/5. Hip abductors 5/5. Knee flexors 5/5. Knee extensors 5/5. Ankle dorsiflexors 5/5. Ankle plantarflexors 5/5. Sensation: Intact as to pain and light pressure in bilateral lower extremities except for on the R top of foot Bed Mobility/Transfers: Supine to sit standby assist, cued to use both hands as needed for support Sit to stand contact-guard assist, cued to use both hands to push off from edge of bed to hold onto walker Stand to sit contact-guard assist, cued to use both hands to to reach behind armrest Bed to chair contact-guard assist using FWW Gait: Facilitated safe and correct performance of level surface ambulation using front wheeled walker covering a distance of 150 feet with cues provided for step through heel toe gait pattern. Contact-guard assist provided as patient was complaining of mild lightheadedness. No loss of balance. No shortness of breath. Good quad activation on the right. Stairs: Guided patient with safe and correct navigation of 6 x 4 inch steps and 4 x 6 inch steps while holding onto bilateral rails for support requiring contact- guard assist, minimal verbal cueing provided for overall safety. Balance: Static Sitting: Normal Dynamic Sitting: Normal Static Standing: Fair Dynamic Standing: Fair Special Tests: Mobility Limitations Standardized Measure [facility] AM-PAC 6 clicks Basic Mobility Inpatient Short Form: Raw Score: 16 CMS Score: 54% deficit Informed Consent/Education: Patient instructed in purpose of PT consult. Packet containing TKA exercise protocol has been given to patient. Education and training on initial set of exercises that can be done at home have been completed with patient. Access Code: [email or web address] URL: [email or web address] Date: 11/21/2022 Prepared by: Manisha Jaime Exercises - Supine Quad Set - 1 x daily - 7 x weekly - 1 sets - 10 reps - 5 hold - Supine Heel Slide - 1 x daily - 7 x weekly - 1 sets - 10 reps - 5 hold - Supine Ankle Pumps - 1 x daily - 7 x weekly - 1 sets - 10 reps - 5 hold - Small Range Straight Leg Raise - 1 x daily - 7 x weekly - 1 sets - 10 reps - 5 hold - Seated March - 1 x daily - 7 x weekly - 1 sets - 10 reps - 5 hold ASSESSMENT: Patient regards to use of a front-wheeled walker for all mobility ADL performance to maximize independence and reduce fall risk. No difference in distal leg and foot girth appreciated on palpation. AROM and strength in B ankles WNL/WFL. Patient presents with clinical signs and symptoms consistent with current/admitting diagnoses that have resulted to mobility limitations, gait instability, generalized weakness, and impairment of motor control as demonstrated by the following impairment level findings: 1. Decreased strength to R knee major muscle groups 2. Impaired standing balance 3. Limitation of joint range of motion in R knee Impairments are contributing to the following functional limitations: 1. Inability to safely ambulate without assistive device 2. Increase completion time for mobility ADL performance 3. Increased fall risk Patient is assessed as a 30989 moderate complexity based on the following: History: 62-year-old female with impairment level findings, functional limitations, and past medical history as indicated above Examination: Demonstrable impairment in strength, balance, and mobility level with underlying impairments and functional limitations as documented above Presentation: Evolving Decision Makin moderate complexity Goals: N/A. PT evaluation and 1-2 treatment sessions only for functional mobility training using recommended AD and for HEP instruction. Plan of Care/Treatment Plan: N/A. PT evaluation and 1-2 treatment session only for functional mobility training using recommended AD and for HEP instruction. DISCHARGE RECOMMENDATIONS: Home when medically cleared by orthopedic surgeon. Recommend outpatient PT services in order to optimize functional mobility outcomes and facilitate return to independent community ambulation without an assistive device. TREATMENT CODE/TIME: 70492 x 20 minutes for 1 unit, 60039 x 19 minutes for 1 unit beginning at 3:19 PM. Thank you for the opportunity to participate in the care of this patient. Manisha Jaime PT, DPT, CLT [facility], [place]
[2022-11-21] MEDS: Ondansetron 4 MG/2 ML VIAL IVP (16:34)
[2022-11-21] MEDS: LORazepam 2 MG/ML VIAL 0.25 MG IVP (18:00)
== END 2022-11-21 19:10 | disposition home or self-care (01) ==
PROVIDERS: PCP Internal Medicine; Visit Provider Student in an Organized Health Care Education/Training Program
PROC: (CPT 27447; principal; 2022-11-21 11:15)
DX: M17.11 Unilateral primary osteoarthritis, right knee (principal); J44.9 Chronic obstructive pulmonary disease, unspecified; I25.10 Atherosclerotic heart disease of native coronary artery without angina pectoris; M79.7 Fibromyalgia; E78.5 Hyperlipidemia, unspecified
CPT/HCPCS: 27447; 64447; 76942; 97162; 97530; J2001; J2060; J2250; J2405

== ENCOUNTER 2022-12-04 14:00 | Outpatient (CLI) | payer MEDICAID, SELFPAY ==
--- NOTE | 2022-12-04 13:00 | DI.RAD_ITS ---
Exam(s) XR KNEE RT 1V XR STANDING ALIGNMENT EXAM: XR STANDING ALIGNMENT CLINICAL HISTORY: 1ST POST OP S/P R TKA. TECHNIQUE: 2D digital imaging was performed. Standing AP views were performed from the pelvis throu gh the ankles. COMPARISON: CR XR STANDING ALIGNMENT from 11/16/2022 CR XR KNEE RT 1V from 12/04/2022 FINDINGS: BONES: No acute fracture is present. No bony destructive lesion is seen. Leg length discrepancy: No significant overall length discrepancy. JOINTS: Knees: Status post placement of right total knee prosthesis. The alignment appears satisfact ory. There are no abnormal surrounding bony lucencies. The left knee joint spaces are maintained. The ankle joints are unremarkable. The hip joints are unremarkable. SOFT TISSUE: Mild anterior soft tissue swelling on the right. Mild right lower leg edema. IMPRESSION: Status post placement of right knee prosthesis. No significant leg length discrepancy. DATA REPOSITORY: RADIATION DOSE DELIVERED:
== END 2022-12-04 14:01 | disposition home or self-care (01) ==
LOC: DIORS 14:00
PROVIDERS: PCP Internal Medicine; Visit Provider Student in an Organized Health Care Education/Training Program
DX: Z96.651 Presence of right artificial knee joint (principal); Z47.1 Aftercare following joint replacement surgery
CPT/HCPCS: 73560; 77073

== ENCOUNTER 2023-04-05 13:11 | Outpatient (REF) | payer MEDICAID, SELFPAY ==
[2023-04-05 12:20] LABS: Abs Immature Grans 0.05 10^3/uL (0.0-0.06); Absolute Basophil Count 0.06 10^3/uL (0.0-0.2); Absolute Eosinophil Count 0.05 10^3/uL (0.0-0.7); Absolute Lymphocyte Count 1.82 10^3/uL (1.2-3.4); Absolute Monocyte Count 0.37 10^3/uL (0.1-0.8); Absolute Neutrophil Count 2.62 10^3/uL (1.2-6.7); Basophils % 1.2; HCT 40.9 % (36.0-46.0); HGB 13.6 g/dL (11.2-15.7); Lymphocytes % 36.6; MCH 29.6 pg (27.0-33.0); MCHC 33.3 % (32.0-36.0); MCV 89 fL (80-95); MPV 9.6 fL (8.0-11.0); Monocytes % 7.4; Neutrophils % 52.8; Platelet Count 261 10^3/uL (130-400); RDW-SD 42.3 fL; WBC 4.97 10^3/uL (4.4-10.8)
[2023-04-06 09:32] LABS: IgE 34 IU/mL (<158)
[2023-04-07 14:33] LABS: Aspergillus Fumigatus IgE <0.10 kU/L (<0.70)
== END 2023-04-05 13:12 | disposition home or self-care (01) ==
LOC: LBN 13:11
PROVIDERS: PCP Internal Medicine; Referring Provider Physician Assistant Surgical; Visit Provider Physician Assistant Surgical
DX: J45.909 Unspecified asthma, uncomplicated (principal); R05.8 Other specified cough; J31.0 Chronic rhinitis
CPT/HCPCS: 87305; 82785; 85025; 86003

== ENCOUNTER 2023-04-27 09:49 | Outpatient (REF) | payer BC, SELFPAY ==
[2023-04-27 18:58] LABS: Creatine Kinase 127 U/L (26-192); LDH 232 U/L (81-234)
[2023-04-27 19:01] LABS: C-Reactive Protein < 0.50 mg/dL (<or=0.5)
== END 2023-04-27 09:50 | disposition home or self-care (01) ==
LOC: NCHCN 09:49
PROVIDERS: PCP Internal Medicine; Visit Provider Internal Medicine
DX: M60.88 Other myositis, other site (principal)
CPT/HCPCS: 82550; 83615; 86140

== ENCOUNTER 2023-05-03 19:29 | Outpatient (REF) | payer BC, SELFPAY ==
[2023-05-07 13:25] LABS: Blastomyces Ag Result Not Detected; Blastomyces Ag Value Not Detected
== END 2023-05-03 19:30 | disposition home or self-care (01) ==
LOC: LBN 19:29
PROVIDERS: PCP Internal Medicine; Visit Provider Physician Assistant Surgical
DX: J45.909 Unspecified asthma, uncomplicated (principal)
CPT/HCPCS: 87449; 87385

== ENCOUNTER 2023-07-23 08:40 | Outpatient (CLI) | payer BC, SELFPAY ==
--- NOTE | 2023-07-23 08:30 | RT.EKG_ITS ---
APPROVED REPORT Exam: Resting ECG Reason for Exam: cad Patient Location: O HR:59 bpm ECG Measurements Heart Rate 59 AXIS DE 182 P 50 QRSd 157 QRS 10 QT 490 T 90 QTc 486 Conclusion Sinus rhythm...normal P axis, V-rate 50- 99 Left bundle branch block...QRSd>120, broad/notched R
== END 2023-07-23 08:41 | disposition home or self-care (01) ==
LOC: DI.CARD 08:40
PROVIDERS: PCP Internal Medicine; Visit Provider Internal Medicine Cardiovascular Disease
DX: I25.10 Atherosclerotic heart disease of native coronary artery without angina pectoris (principal); R00.2 Palpitations
CPT/HCPCS: 93010

== ENCOUNTER 2023-12-03 11:50 | Outpatient (CLI) | payer BC, SELFPAY ==
--- NOTE | 2023-12-03 11:00 | DI.RAD_ITS ---
Exam(s) XR KNEE RT 2V AP,LAT EXAM: XR KNEE RT 2V AP,LAT INDICATION: ANNUAL F/U R TKA. COMPARISON: CR XR KNEE RT 1V from 12/04/2022 TECHNIQUE: 2D digital imaging was performed. Two views. FINDINGS: Stable alignment of total knee prosthesis. No abnormal surrounding bony lucencies. DATA REPOSITORY: RADIATION DOSE DELIVERED:
== END 2023-12-03 11:51 | disposition home or self-care (01) ==
LOC: DIORS 11:50
PROVIDERS: PCP Internal Medicine; Visit Provider Student in an Organized Health Care Education/Training Program
DX: Z96.651 Presence of right artificial knee joint (principal); Z47.1 Aftercare following joint replacement surgery
CPT/HCPCS: 73560

== ENCOUNTER 2024-02-21 13:41 | Outpatient (REF) | payer BC, SELFPAY ==
[2024-02-21 19:53] LABS: ALT 26 U/L (14-59); Anion Gap 7.5 mmol/L (3-11); BUN 24 mg/dL (7-18); CO2 28.5 mmol/L (21.0-32.0); Calcium 9.4 mg/dL (8.5-10.1); Calculated LDL 116 mg/dL (<100); Chloride 107 mmol/L (98-107); Cholesterol 196 mg/dL (<200); Glucose 94 mg/dL (74-106); HDL Cholesterol 57 mg/dL (40-60); Potassium 3.7 mmol/L (3.5-5.1); Sodium 143 mmol/L (136-145); TSH 1.38 uIU/mL (0.36-3.74); Triglyceride 117 mg/dL (<150)
[2024-02-21 20:04] LABS: Creatine Kinase 121 U/L (26-192)
== END 2024-02-21 13:42 | disposition home or self-care (01) ==
LOC: NCHCN 13:41
PROVIDERS: PCP Internal Medicine; Visit Provider Internal Medicine
DX: E78.5 Hyperlipidemia, unspecified (principal); I10 Essential (primary) hypertension
CPT/HCPCS: 80048; 80061; 82550; 84443; 84460

== ENCOUNTER 2024-07-24 09:28 | Outpatient (CLI) | payer BC, SELFPAY | END 2024-07-24 09:29 | disposition home or self-care (01) | PROVIDERS: PCP Internal Medicine; Visit Provider Internal Medicine | DX: R42 Dizziness and giddiness (principal) | CPT/HCPCS: 93270 ==

== ENCOUNTER 2024-07-31 00:27 | Outpatient (CLI) | payer BC, SELFPAY ==
--- NOTE | 2024-07-31 07:00 | DI.NM_ITS ---
APPROVED REPORT Exam: Pharmacologic Patient Location: Out-Patient Room/Bed: Stress Nurse: Mary Carmen Sainz, RN, Sallie Turcios RN Ordering Provider:SYLVESTER RODRIGUEZ, Contact Number: BMI: 31.70 Baseline Rhythm: Sinus Bradycardia Indications: chest pain, significant dyspnea Medical History Medical History: Fibromyalgia, asthma, MEDEROS, Graves Disease, GERD, HTN, LBBB, COPD, HLD, depression, CAD Cardiac Medications: aspirin, atenolol, symbicort, losartan-hydrochlorothiazide, pravastatin Allergies: gabapentin, PCN, MARY inhibitors, diclofenac, fentanyl Cardiac Risk Factors: family hx, HTN, asthma, HLD, COPD, CVD, former smoker Previous Cardiac Procedures: none Pretest Chest Pain Characteristics: No chest pain Exercise History: Indeterminate Physical Disabilities: LBBB Lung Sounds: Clear Heart Sounds: Bradycardia Stress Test Details Test: Pharmacologic stress testing performed using 0.4 mg of regadenoson per 5 mL given IV over 10 seconds. Reason for pharmacologic stress test: LBBB. Nuclear Acquisition: Rest Tc-99m/Stress Tc-99m 1 day Rest Isotope: Tc-99m Sestamibi. Dose: 10.0 Date: 07/31/2024 Injection Time: 0915 Stress Isotope: Tc-99m Sestamibi. Dose: 30.0 Date: 07/31/2024 Injection Time: 1112 HR Resting HR Supine: 58 bpm Max Heart Rate (APMHR): 158 bpm Resting HR Standin bpm Target HR (85% APMHR): 134 bpm Max HR Achieved: 88 bpm % of APMHR: 56 Recovery HR: 65 bpm BP Resting BP Supine: 112/82 mmHg Resting BP Standin/80 mmHg Max BP: 132/78 mmHg Recovery BP: 128/80 mmHg ECG Resting ECG: Sinus Bradycardia, LBBB Ectopy: rare PACs Stress ECG: Sinus Rhythm, LBBB ST Change: Nondiagnostic low heart rate Recovery ECG: Sinus Rhythm, LBBB Recovery ST Change: Nondiagnostic low heart rate Clinical Stress Symptoms: moderate to severe SOB, headache Angina Score: None Rate Pressure Product: 41776 Stress ECG Conclusion 1. Resting electrocardiogram showed a left bundle branch block 2. Patient underwent testing using pharmacologic stress with regadenoson 3. Peak heart rate achieved was 56% of maximal predicted for age 4. The electrocardiographic portion of the test was nondiagnostic 5. See MPI report Stress Test Summary STAGE HR BP SpO2 Symptoms NOTES Supine 58 112/82 Standing 60 118/80 1 min post Lexiscan injection 52 132/78 3 min post Lexiscan injection 74 134/72 6 min post Lexiscan injection 64 128/80 Lexiscan protocol done related to LBBB. Unable to do walking Tia secondary to significant artifact with movement. Patient experienced moderate to severe SOB after injection. C/O headache. SOB resolved prior to departure. Patient left ambulatory in no distress. MPI Conclusion Myocardial perfusion is normal. There is no ischemia or evidence of prior infarction Ejection fraction is 55% with normal wall motion
== END 2024-07-31 00:47 ==
LOC: DI 00:28
PROVIDERS: PCP Internal Medicine; Visit Provider Internal Medicine Cardiovascular Disease
DX: R07.9 Chest pain, unspecified (principal); R06.00 Dyspnea, unspecified
CPT/HCPCS: 78452; 93017

== ENCOUNTER 2024-08-13 03:16 | Outpatient (CLI) | payer BC, SELFPAY ==
--- NOTE | 2024-08-13 08:30 | DI.US_ITS ---
APPROVED REPORT EXAM: Comprehensive 2D, Doppler, and color-flow Echocardiogram Patient Location: Out-Patient Computer Trainer: Yue Diaz RDCS (AE) Indications: Lightheaded, dizziness, MEDEROS, Chest pain Other Information Study Quality: Adequate Conclusion Normal left ventricular wall thickness and chamber size. Ejection fraction is 60%. Wall motion is normal Normal right ventricular size and function Both atria are normal in size There is no structural or hemodynamically significant valvular disease Estimated right ventricular systolic pressure is 21 mmHg Wall motion Left Ventricle The left ventricle is normal size. The left ventricular systolic function is normal. The left ventricular ejection fraction is within the normal range. There is normal left ventricular wall thickness. There is normal LV segmental wall motion. There is no ventricular septal defect visualized. LVEF is 60%. Right Ventricle The right ventricle is normal size. The right ventricular systolic function is normal. Atria The left atrium size is normal. The right atrium size is normal. The interatrial septum is intact with no evidence for an atrial septal defect. Aortic Valve The aortic valve is normal in structure. Aortic valve is trileaflet. There is no aortic valvular stenosis. No aortic regurgitation is present. Mitral Valve The mitral valve is normal in structure. No evidence of mitral valve stenosis. Trace to mild mitral regurgitation. Tricuspid Valve The tricuspid valve is normal in structure. There is no tricuspid valve stenosis. Mild tricuspid regurgitation. The RVSP is 21.4 mmHg. Pulmonic Valve The pulmonary valve is normal in structure. There is no pulmonic valvular stenosis. Trace pulmonic regurgitation. Great Vessels The aortic root is normal in size. The ascending aorta is normal in size. Aortic arch is not well visualized. IVC is normal in size and collapses >50% with inspiration. Pericardium There is no pericardial effusion. 2D Dimensions IVSD d PLAX 0.80 cm F: 0.6-1.0 Ao Root d 2.72 cm F: 2.7 - 3.3 LVPW d PLAX 0.80 cm F: 0.6 - 1.0 Ao Asc Diam d 3.17 cm F: 2.3 - 3.1 LVID d PLAX 4.91 cm F: 3.8 - 5.2 LVDs 3.35 cm F: 2.2 - 3.5 LV EF Teichholz 59.7 % FS 31.86 % LV EDV (Teich) 113.4 mL LV ESV (Teich) 45.7 mL M-Mode TAPSE 2.17 cm (M/F) >1.7 Auto EF LV EDV A4C 122.9 mL LV EDV A2C 94.8 mL LV EDV BP 109.7 mL LV ESV A4C 50.4 mL LV ESV A2C 37.6 mL LV ESV BP 44.8 mL LVEF(%) A4C 59.0 % LVEF(%) A2C 60.4 % LVEF(%) BP 59.1 % LV SV A4C 72.6 ml LV SV A2C 57.2 ml LV SV BP 64.9 ml LV CO A4C 3.3 L/min LV CO A2C 3.2 L/min LV CO BP 3.3 L/min HR A4C 45.06 BPM HR A2C 56.61 BPM LV EDV Index (BP) LA Volume LA Length A4C 5.5 cm LA Length A2C 5.4 cm LA Area A4C s 17.56 cm2 LA Area A2C s 19.49 cm2 LA Vol A4C A-L 47.33 mL LA Vol A2C A-L 59.62 mL LA Vol Biplane A-L 53.7 mL LA Vol/BSA A4C A-L LA Vol/BSA A2C A-L LA Vol/BSA BP A-L 29.5 mL/m2 LA Vol A4C MOD 42.9 mL LA Vol A2C MOD 55.8 mL LA Vol BP MOD 49.4 mL RA Volume RA Area A4C 19.7 cm2 RA ESV A4C (A-L) 58.2mL RA Vol/BSA A4C A-L RA Length A4C 5.6 cm RA ESV A4C (MOD) 56.4mL LV Diastology MV E' medial 0.056 (>0.07 m/s) MV E Vmax 0.61 (0.4-1.3 m/s) MV E/E' MED 10.79 (<14) MV A Vmax 0.80 (0.4-1.3 m/s) MV E' lateral 0.056 (>0.1 m/s) E/A Ratio 0.8 MV E/E' LAT 10.79 (<14) MV E' Average 0.056 m/s MV E/E'(average) 10.79 Aortic Valve AoV Vmax 1.55 m/s LVOT Vmax 1.25 m/s AoV Peak Grad 9.6 mmHg LVOT Peak Grad 6.3 mmHg AoV Area (Vmax) 2.29 cm2 LVOT VTI 0.308 m AoV VTI 0.394 m LVOT Mean Grad 3.5 mmHg AoV Mean Antonio. 1.06 m/s LVOT SV 87.11 mL AoV Mean Grad 5.1 mmHg LVOT Diam s 1.85 cm AoV Area (VTI) 2.21 cm2 AV Regurg Peak Gr. 9.57 mmHg Velocity Ratio 0.81 Mitral Valve MV DT 263 (160-240 msec) MV Vmax TIPS 0.77 m/s MV Mean Grad 0.8 (<2mmHg) MV VTI 0.345 m Pulmonary Valve PV Vmax 0.97 (0.5-1.5 m/s) RVOT Vmax 0.71 m/s PV Peak Grad 3.8 mmHg RVOT Peak Gr. 2.0 mmHg PV Mean Antonio 0.60 m/s RVOT VTI 0.185 m PV Mean Grad 1.6 mmHg RVOT Mean Gr. 1.2 mmHg Tricuspid Valve RA Pressure 3.00 mmHg TR Vmax 2.15 m/s TV S' 0.11 m/s TR Peak Grad 18.4 mmHg RVSP (TR) 21.4 mmHg
== END 2024-08-13 03:36 ==
LOC: DI 03:16
PROVIDERS: PCP Internal Medicine; Visit Provider Internal Medicine Cardiovascular Disease
DX: R06.00 Dyspnea, unspecified (principal); R07.9 Chest pain, unspecified
CPT/HCPCS: 93306

== ENCOUNTER 2024-08-26 07:26 | Outpatient (CLI) | payer BC, SELFPAY ==
--- NOTE | 2024-08-26 09:42 | W.CARDEVENT ---
Date of service: 08/26/24 Time of Service: 09:42 Cardiac Event Recorder Referring Provider:: Tana Pagan Indications:: Dizziness Cardiac Event Note: This is a cardiac event monitor. Patient was monitored for 19 days and 8 hours Rhythm throughout was sinus. Average heart rate overall was 66. Minimum was 43, maximum 119. There was no atrial fibrillation, no high-grade AV block, no pauses greater than 3 seconds. There were rare ventricular ectopic beats. Multiple symptoms were reported all of which correlated to sinus rhythm
== END 2024-08-26 07:27 | disposition home or self-care (01) ==
LOC: CARDOPNVT 07:26
PROVIDERS: PCP Internal Medicine; Visit Provider Internal Medicine Cardiovascular Disease
DX: R42 Dizziness and giddiness (principal)
CPT/HCPCS: 93272

== ENCOUNTER 2024-09-11 14:00 | Outpatient (CLI) | payer BC, SELFPAY ==
[2024-09-11 14:13] LABS: HCT 38.5 % (36.0-46.0); HGB 13.0 g/dL (11.2-15.7); MCH 30.5 pg (27.0-33.0); MCHC 33.8 % (32.0-36.0); MCV 90 fL (80-95); MPV 9.4 fL (8.0-11.0); Platelet Count 231 10^3/uL (130-400); RBC 4.26 10^6/uL (3.93-5.22); RDW 13.0 % (11.7-14.6); RDW-SD 42.7 fL; WBC 4.97 10^3/uL (4.4-10.8)
== END 2024-09-11 14:01 | disposition home or self-care (01) ==
LOC: LBO 14:01
PROVIDERS: PCP Internal Medicine; Visit Provider Registered Nurse
DX: R42 Dizziness and giddiness (principal)
CPT/HCPCS: 36415; 85027